=== PATIENT | female | born 2000 | race Caucasian/White ===

== ENCOUNTER 2022-06-09 10:23 | Emergency (ER) | payer OTHER ==
[~2022-06-09] VITALS: Ht 152.4 cm; Wt 86.2 kg
== END 2022-06-09 11:05 | disposition home or self-care (01) ==
LOC: ER 10:23 → EMR PED 10:31 → ER 10:31 → EMR PED 11:05
DX: J35.1 Hypertrophy of tonsils (principal); R09.81 Nasal congestion

== ENCOUNTER 2022-06-10 13:44 | Emergency (ER) | payer OTHER ==
[~2022-06-10] VITALS: Ht 152.4 cm; Wt 86.2 kg
== END 2022-06-10 15:00 | disposition home or self-care (01) ==
LOC: EMR PED 13:44
DX: J35.1 Hypertrophy of tonsils (principal); R09.81 Nasal congestion

== ENCOUNTER → 2023-06-06 | Emergency (ER) | payer OTHER ==
[~2023-06-06] VITALS: Ht 152.4 cm; Wt 90.3 kg
[~2023-06-06] MED LIST: AMOX-CLAV 875-1 EAC1 PO
== END | disposition home or self-care (01) ==
LOC: ER 17:54
DX: S01.85XA Open bite of other part of head, initial encounter (principal); W54.0XXA Bitten by dog, initial encounter; Y93.89 Activity, other specified; Y92.098 Other place in other non-institutional residence as the place of occurrence of the external cause; Y99.8 Other external cause status

== ENCOUNTER 2023-06-13 15:04 | Emergency (ER) | payer OTHER ==
[~2023-06-13] VITALS: Ht 152.4 cm; Wt 81.6 kg
== END 2023-06-13 18:34 | disposition home or self-care (01) ==
LOC: ER 15:04
DX: Z48.02 Encounter for removal of sutures (principal)